=== PATIENT | female | born 1965 | race Asian ===

== ENCOUNTER 2021-07-18 09:47 | Day surgery (SDC) | payer OTHER ==
[~2021-07-18] VITALS: Ht 157.5 cm; Wt 45.8 kg
[2021-07-18] MEDS ORDERED: fentaNYL citrate 0.05 MG/ML VIAL ONE (10:46)
[2021-07-18] MEDS ORDERED: LIDOCAINE 2% 100 MG/5 ML UJET TP ONE (10:46)
[2021-07-18] MEDS ORDERED: MIDAZOLAM 5 MG/5 ML VIAL ONE (10:46)
[2021-07-18] MEDS ORDERED: fentaNYL citrate 0.05 MG/ML VIAL IVP ONE (13:05)
== END 2021-07-18 12:25 | disposition home or self-care (01) ==
LOC: MDS 09:47 → MMU 09:48 → MDS 12:25
PROVIDERS: ATTEND Internal Medicine Gastroenterology
DX: R19.5 Other fecal abnormalities (principal); K63.5 Polyp of colon; K57.30 Diverticulosis of large intestine without perforation or abscess without bleeding; K64.9 Unspecified hemorrhoids; Z86.010 Personal history of colon polyps; I10 Essential (primary) hypertension; E78.00 Pure hypercholesterolemia, unspecified; Z80.0 Family history of malignant neoplasm of digestive organs; Z79.899 Other long term (current) drug therapy; Z20.822 Contact with and (suspected) exposure to COVID-19
CPT/HCPCS: 45385; 81025; 87426; J3010; J2250